=== PATIENT | female | born 1995 | race American Indian/Alaskan Native ===

== ENCOUNTER 2017-07-20 20:16 | Emergency (ER) | payer MEDICAID, OTHER ==
[2017-07-20 20:59] VITALS: BP 90/61; PULSE 89; RESP 20; TEMP 98.1; O2SAT 98
[2017-07-20] MEDS ORDERED: Amoxicillin-Clav 875-125 mg Tab PO STA (21:09)
[2017-07-20] MEDS ORDERED: Amoxicillin-Clav 875-125 mg Tab PO ONE (21:18)
--- NOTE | 2017-07-20 21:48 | C.PDOC ---
History Of Present Illness 22 year old female presents to the ED for evaluation after she sustained a dog bite to her left lower leg around 2 days ago. Patient states the dog is her friend's family pet and is UTD with immunizations. Patient reports pain to the area and denies fever, chills, or any other injuries at this time. Time Seen by Provider: 07/20/17 21:03 Chief Complaint (Nursing): Bite History Per: Patient History/Exam Limitations: no limitations Onset/Duration Of Symptoms: Days (2) Current Symptoms Are (Timing): Still Present Location Of Injury: Left: Leg (lower ) Quality Of Symptoms: Painful Additional History Per: Patient - Animal Bite Description Of The Animal: Other (friend's pet) Past Medical History Reviewed: Historical Data, Nursing Documentation, Vital Signs Vital Signs: Last Vital Signs Temp 98.1 F 07/20/17 20:55 Pulse 89 07/20/17 20:55 Resp 20 07/20/17 20:55 BP 90/61 L 07/20/17 20:55 Pulse Ox 98 07/20/17 22:02 - Medical History PMH: No Chronic Diseases Surgical History: No Surg Hx Family History: States: Unknown Family Hx - Social History Hx Tobacco Use: No Hx Alcohol Use: Yes Hx Substance Use: No - Immunization History Hx Tetanus Toxoid Vaccination: No Hx Influenza Vaccination: No Hx Pneumococcal Vaccination: No Review Of Systems Constitutional: Negative for: Fever, Chills Respiratory: Negative for: Cough, Shortness of Breath Musculoskeletal: Positive for: Leg Pain Skin: Positive for: Other (dog bite to left lower leg ) Neurological: Negative for: Weakness, Numbness Physical Exam - Physical Exam Appears: Non-toxic, No Acute Distress Skin: Normal Color, Warm, Dry, No Rash, Other (two puncture wounds to mid- posterior calf with (+) tenderness. no active bleeding ) Head: Atraumatic, Normacephalic Eye(s): bilateral: Normal Inspection, PERRL, EOMI Oral Mucosa: Moist Extremity: Normal ROM, Capillary Refill (less than 2 seconds ), No Deformity, No Swelling Pulses: Left Dorsalis Pedis: Normal, Right Dorsalis Pedis: Normal Neurological/Psych: Normal Speech, Normal Cognition, Normal Sensation Gait: Steady ED Course And Treatment O2 Sat by Pulse Oximetry: 98 (on RA) Pulse Ox Interpretation: Normal Medical Decision Making Medical Decision Making: Progress: Animal bite form was obtained. Tetanus immunization IM and Augmentin PO administered. On reassessment, patient is resting comfortably, reports an improvement in her pain and is stable for discharge with wound care instructions. Patient is advised to follow up with her PMD within 1-2 days for further evaluation. Disposition - Disposition Referrals: [facility] at [facility] [Outside] Disposition: HOME/ ROUTINE Disposition Time: 21:47 Condition: GOOD Additional Instructions: Follow up with the medical doctor/clinic within 1-2 days. Return if worsened. Prescriptions: Amoxicillin/Clavulanate [Augmentin 875 MG-125 MG] 1 tab PO BID #20 tab Bacitracin Ointment [Bacitracin] 30 gm TOP BID #1 tube Ibuprofen [Motrin] 1 tab PO TID PRN #30 tab PRN Reason: Pain Instructions: Animal Bite (ED) Forms: Sounder (Bahraini) - Clinical Impression Clinical Impression: Animal bite wound - PA / [employer] / Resident Statement MD/DO has reviewed & agrees with the documentation as recorded. - Scribe Statement The provider has reviewed the documentation as recorded by the Scribe (Nyla Bowman) All medical record entries made by the Scribe were at my direction and personally dictated by me. I have reviewed the chart and agree that the record accurately reflects my personal performance of the history, physical exam, medical decision making, and the department course for this patient. I have also personally directed, reviewed, and agree with the discharge instructions and disposition.
== END 2017-07-20 21:58 | disposition home or self-care (01) ==
LOC: C.ER 20:16
DX: S81.832A Puncture wound without foreign body, left lower leg, initial encounter (principal); W54.0XXA Bitten by dog, initial encounter; Y92.89 Other specified places as the place of occurrence of the external cause; Z23 Encounter for immunization